=== PATIENT | female | born 2005 | race Two or more races ===

== ENCOUNTER 2025-08-02 20:22 | Inpatient (IN) ==
[2025-08-02 21:15] LABS: Hematocrit (blood only) 38.8 % (37.0-47.0); Hemoglobin 13.0 g/dl (12.0-16.0); Immature Granulocytes # (auto) 0.01 K/uL (0.01-0.20); Immature Granulocytes % (auto) 0.2 %; Mean Corpuscular Hemoglobin 26.8 pg (25.0-34.0); Mean Corpuscular Volume 80.0 fL (80.0-100.0); Platelet Count 422 K/uL (130-400); RDW Standard Deviation 37.2 fL (36.4-46.3); Red Blood Count 4.85 M/uL (4.20-5.40); White Blood Count 5.78 K/ul (4.8-10.8)
[2025-08-02 21:22] LABS: Appearance Urine Clear (Clear); Glucose Urine UA Negative (Negative)
[2025-08-02 21:32] LABS: Alanine Aminotransferase 11.0 U/L (7-52); Albumin Globulin Ratio 1.3 (0.9-2); Albumin Level 4.7 gm/dl (3.4-5.0); Alkaline Phosphatase 93.0 U/L (34-104); Anion Gap 10.0 (3-11); Bilirubin,Total 0.7 mg/dl (0.2-1.0); Blood Urea Nitrogen 12.0 mg/dl (6-23); Calcium 9.0 mg/dl (8.6-10.3); Carbon Dioxide 23.0 mmol/L (21-32); Chloride 105.0 mmol/L (98-107); Creatinine Clr Calc Pharmacy 124.5 ml/min; Globulin 3.6 gm/dl (2.5-4.0); Glucose 71.0 mg/dl (70-99(Fasting)); Potassium 3.5 mmol/L (3.5-5.1); Sodium 138.0 mmol/L (136-145); Total Protein 8.3 gm/dl (6.0-8.3)
[2025-08-02 21:41] LABS: Acetaminophen < 3 ug/ml (10-30); Salicylate < 3.0 mg/dl (3.0-30)
[2025-08-02 21:45] LABS: Amphetamines+Metham, Urine Neg (Neg); MDMA (Ecstacy), Urine Neg (Neg); Marijuana, Urine Neg (Neg)
[2025-08-02 21:46] LABS: Thyroid Stimulating Hormone 0.492 uIu/ml (0.300-4.500)
--- NOTE | 2025-08-02 22:17 | Emergency Department Note ---
Impression & Plan Depression, Anxiety, Suicidal ideation ED Provider Note ED Provider Note NAME: MARRY VALENCIA AGE:19 SEX: Female : 2005 ARRIVES VIA: Private vehicle INFORMANT: Patient ED PROVIDER(s): Ana Hendrickson DO CHIEF COMPLAINT: Mental health evaluation HPI: This is a 19-year-old female who presents emerged ferment for mental health evaluation. Patient admits to increased anxiety and depression as well as thoughts of self-harm and thoughts of suicide recently. Patient states over the course of this past week she was using her clonazepam that she takes for as needed anxiety more than usual taking a total of 7 mg on Tuesday and Tuesday. She states she feels it did not really help and so she has not taken it since. She states she takes venlafaxine daily as well. She states she has previously been on other medications and was following with psychiatry as an outpatient before returning to school. She states she has previously tried to commit suicide. She states recently she thought about overdosing. She denies any HI, paranoia, or hallucinations. She has been trying to arrange outpatient mental health services here. PAST MEDICAL HISTORY:See Below PAST SURGICAL HISTORY:See Below FAMILY HISTORY:See Below SOCIAL HISTORY:See Below HOME MEDICATIONS:See Below ALLERGIES:See Below VITALS:See Below PHYSICAL EXAMINATION: GENERAL: alert, well appearing, well nourished, no distress, non-toxic EYE EXAM: normal conjunctiva, PERRL and EOM's grossly intact OROPHARYNX: lips, buccal mucosa, and tongue normal and mucous membranes are moist NECK: supple, no nuchal rigidity, no adenopathy, non-tender LUNGS: Clear to auscultation. Normal chest wall mechanics, no w/r/r HEART: no murmurs, S1 normal and S2 normal ABDOMEN: abdomen soft, non-tender, normo-active bowel sounds, no masses, no rebound or guarding. SKIN: no rashes, petechiae, orbruising UPPER EXTREMITIES: upper extremities are grossly normal. FROM, nml pulses b/l. LOWER EXTREMITIES: No pitting edema. FROM, nml pulses b/l. NEURO EXAM: Normal sensorium, cranial nerves II-XII grossly intact, normal speech, no facial droop,nogross weakness of arms, no gross weakness of legs. Gross sensation intact. No ataxia. Vital Signs: reviewed and remarkable Differential Diagnosis: mood disorder, suicidal ideation, anxiety, depression, substance abuse, toxidrome, infection, hypoglycemia, electrolyte abnormalities, ICH as well as others were considered. MEDICAL DECISION MAKING: This is a well-appearing 19-year-old female who presents due to concern for increased anxiety, depression, and suicidal ideation. Patient hemodynamically stable. Labs and urine collected and sent per protocol. Patient evaluated by case management additionally, please see their additional documentation. Patient agreement with plan for additional inpatient mental health treatment. Patient evaluated by [facility] and felt suitable for their unit. 201 signed by me. Patient transferred to [facility] in good condition. Consultation(s): 2199: Patient seen and evaluated by case management in agreement with plan for additional inpatient mental health treatment. Please see their additional documentation. ER Treatment Provided: See below 2215: 201 signed by me. Diagnostics Interpreted By Me: -Laboratory studies: As stated above and show below. Triage Nursing Note Reviewed Prior/Outside Records Reviewed Past Med/Surg History Problem List (Updated 08/02/25 @ 22:17 by Ana Hendrickson DO) Suicidal ideation (Acute) Anxiety (Acute) Depression (Acute) Sore throat (Acute) Nasal congestion (Acute) Body aches (Acute) Fever (Acute) Influenza A (Acute) Social History Smoking Status: Former smoker Preferred Language: Greek Feels Safe at Home: Yes Gender Identity: Female Allergies Allergies Allergy/AdvReac Type Severity Reaction Status Date / Time No Known Allergies Allergy Verified 08/02/25 21:06 Home Meds Home Medications Medication Instructions Recorded Confirmed venlafaxine 100 mg tablet 100 mg PO DAILY 08/02/25 08/02/25 Results & Data (ED) Vital Signs Vital Signs - 24 hr 08/02/25 20:24 08/02/25 22:17 08/02/25 23:30 Temperature 36.8 C 36.6 C 36.5 C Temperature Source Temporal Artery Scan Oral Oral Pulse Rate 81 Pulse Rate [Finger] 66 68 Pulse Rhythm [Finger] Regular Regular Pulse Strength [Finger] Normal Respiratory Rate 16 16 Respiratory Effort / Characteristics Non-Labored Spontaneous Non-Labored Spontaneous Respiratory Depth Normal Normal Respiratory Pattern Regular Regular Blood Pressure 104/54 L Blood Pressure [Right Arm] 108/67 95/57 L Blood Pressure Mean 70 Blood Pressure Mean [Right Arm] 80 69 Blood Pressure Position [Right Arm] Semi-fowlers Pulse Oximetry 98 98 98 Oxygen Delivery Method Room Air Room Air Room Air Sepsis Recent Fever Within 48 Hours No Sepsis New/Unexplained Change in Mental Status No Sepsis Action Taken by Nursing No Action Required Laboratory Data 08/02/25 20:53 08/02/25 20:53 Lab Results 08/02/25 08/02/25 Range/Units 20:53 21:00 WBC 5.78 (4.8-10.8) K/ul RBC 4.85 (4.20-5.40) M/uL Hgb 13.0 (12.0-16.0) g/dl Hct 38.8 (37.0-47.0) % MCV 80.0 (80.0-100.0) fL MCH 26.8 (25.0-34.0) pg MCHC 33.5 (32.0-36.0) g/dL RDW Std Deviation 37.2 (36.4-46.3) fL RDW Coeff of Galindo 13.0 (11.5-14.5) % Plt Count 422 H (130-400) K/uL MPV 9.1 L (9.4-12.4) fL Immature Gran % (Auto) 0.2 % Neut % (Auto) 44.3 % Lymph % (Auto) 47.8 % [place] % (Auto) 5.4 % Eos % (Auto) 1.6 % Baso % (Auto) 0.7 % Neut # (Auto) 2.57 (1.40-6.50) K/uL Lymph # (Auto) 2.76 (1.20-3.40) K/uL [place] # (Auto) 0.31 (0.11-0.59) K/uL Eos # (Auto) 0.09 (0.00-0.50) K/uL Baso # (Auto) 0.04 (0.00-0.20) K/uL Immature Gran # (Auto) 0.01 (0.01-0.20) K/uL Sodium 138 (136-145) mmol/L Potassium 3.5 (3.5-5.1) mmol/L Chloride 105 (98-107) mmol/L Carbon Dioxide 23 (21-32) mmol/L Anion Gap 10 (3-11) BUN 12 (6-23) mg/dl Creatinine 0.57 L (0.6-1.2) mg/dl Est Cr Clr Drug Dosing 124.5 ml/min eGFR 133.34 BUN/Creatinine Ratio 21.1 H (10-20) Glucose 71 (70-99(Fasting)) mg/dl Calcium 9.0 (8.6-10.3) mg/dl Total Bilirubin 0.7 (0.2-1.0) mg/dl AST 17 (13-39) U/L ALT 11 (7-52) U/L Alkaline Phosphatase 93 (34-104) U/L Total Protein 8.3 (6.0-8.3) gm/dl Albumin 4.7 (3.4-5.0) gm/dl Globulin 3.6 (2.5-4.0) gm/dl Albumin/Globulin Ratio 1.3 (0.9-2) TSH 0.492 (0.300-4.500) uIu/ml Urine Color Yellow Urine Appearance Clear (Clear) Urine pH 6.0 (4.5-7.5) Ur Specific [place] 1.027 (1.000-1.030) Urine Protein Negative (Negative) Urine Glucose (UA) Negative (Negative) Urine Ketones 4+ H (Negative) Urine Blood Negative (Negative) Urine Nitrite Negative (Negative) Urine Bilirubin Negative (Negative) Urine Urobilinogen Negative (Negative) Ur Leukocyte Esterase Negative (Negative) POC Ur Test NEG (NEG) Urine Comment Salicylates < 3.0 L (3.0-30) mg/dl Urine Opiates Screen Neg (Neg) Ur Methadone, Qual Neg (Neg) Urine Fentanyl Screen Neg (Neg) Acetaminophen < 3 L (10-30) ug/ml Urine Barbiturates Neg (Neg) Ur Phencyclidine (PCP) Neg (Neg) U Amphetamin/Meth Scrn Neg (Neg) MDMA (Ecstasy) Screen Neg (Neg) U Benzodiazepines Scrn Neg (Neg) Ur Cocaine Metabolite Neg (Neg) U Marijuana (THC) Screen Neg (Neg) Ethyl Alcohol mg/dL < 10.0 (<10.0) mg/dl SARS-CoV-2, RNA, NAAT NEGATIVE (NEGATIVE) Administered Medications Hydroxyzine HCl (Hydroxyzine Hcl 25 Mg Tab) 50 mg PO HSZ PRN PRN Reason: Insomnia Stop: 09/01/25 23:47 Last Admin: 08/03/25 00:32 Dose: 50 mg Documented By: NII Discontinued Medications Hydroxyzine HCl (Hydroxyzine Hcl 25 Mg Tab) 25 mg PO NOW STA Stop: 08/02/25 22:17 Last Admin: 08/02/25 22:22 Dose: 25 mg Documented By: JOE Discharge Plan Visit Data Chief Complaint: Mental Health Evaluation Stated Complaint: MEDICAL CLEARANCE ED Provider: Ana Hendrickson Discharge Problem: Depression, Anxiety, Suicidal ideation Patient Disposition: Admitted As Inpatient Condition: Fair Discharge Instructions Interventions: ED Discharge Assessment Last Done: 08/02/25 23:30
[2025-08-02] MEDS ORDERED: ACETAMINOPHEN 325 MG TAB PO PRN (23:48)
[2025-08-02] MEDS ORDERED: MAGNESIUM HYDROXIDE SUSP 30 ML UDC PO PRN (23:48)
[2025-08-02] MEDS ORDERED: SODIUM CHLORIDE 0.65% NA SOLN 45 ML (OCEAN) PRN (23:48)
[2025-08-02] MEDS ORDERED: BISMUTH SUBSALICYLATE 262 MG CHEW PO PRN (23:48)
[2025-08-03] MEDS ORDERED: LORazepam 1 MG TAB PO PRN ×2 (00:43→15:43)
[2025-08-03] MEDS: VENLAFAXINE HCL XR 75 MG CAPXR PO SCH (12:55)
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
[2025-08-03] MEDS: ARIPiprazole 5 MG TAB PO SCH (21:27)
[2025-08-03] MEDS: LORazepam 1 MG TAB PO SCH (21:27)
[2025-08-04] MEDS: ALUMINUM/MAGNESIUM SUSP 30 ML UDC PO PRN (05:39)
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
[2025-08-04] MEDS: ARIPiprazole 5 MG TAB PO SCH (21:00)
[2025-08-04] MEDS: LORazepam 1 MG TAB PO SCH (21:01)
[2025-08-05 07:50] LABS: Hemoglobin A1C 5.6 % (4.5-5.6)
[2025-08-05 08:01] LABS: Cholesterol 139.0 mg/dl (0-200); HDL Cholesterol 53.0 mg/dl; Triglycerides 62.0 mg/dl (0-150)
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
[2025-08-05] MEDS: CHOLECALCIFEROL 125 MCG (5,000 UNITS) TAB PO SCH (13:19)
== END 2025-08-05 13:22 | disposition home or self-care (01) | DRG 883 ==
LOC: ED 20:22 → 3S 23:30